=== PATIENT | female | born 1995 | race Two or more races ===

== ENCOUNTER 2021-01-12 19:47 | Emergency (ER) | payer MEDICAID ==
[~2021-01-12] VITALS: Ht 154.9 cm; Wt 89.9 kg
[2021-01-12 19:48] VITALS: BP 157/96
--- NOTE | 2021-01-12 20:25 | NUR ---
PT AMBULATED TO ROOM. C/O PAIN TO RIGHT ANKLE. MILD SWELLING NOTED, PT STATES SHE TWISTED HER ANKLE WHEN SHE STOOD UP AND FELL. DID NOT HIT HER HEAD AND NO LOC.
[2021-01-12] MEDS ORDERED: ACETAMINOPHEN 500 MG TABLET PO ONE (20:30)
[2021-01-12] MEDS ORDERED: KETOROLAC 30 MG/1 ML IM ONE (20:30)
[2021-01-12] MEDS ORDERED: ACETAMINOPHEN 500 MG TABLET ONE (20:54)
[2021-01-12] MEDS ORDERED: KETOROLAC 30 MG/1 ML ONE (20:54)
--- NOTE | 2021-01-12 21:06 | NUR ---
po challenge passed.
== END 2021-01-12 20:24 | disposition home or self-care (01) ==
LOC: ED 20:18
DX: S93.491A Sprain of other ligament of right ankle, initial encounter (principal); R51.9 Headache, unspecified; R55 Syncope and collapse; X58.XXXA Exposure to other specified factors, initial encounter; Y93.89 Activity, other specified; Y92.89 Other specified places as the place of occurrence of the external cause; Y99.8 Other external cause status
CPT/HCPCS: 73610; 93005; 96372; 99283; J1885